=== PATIENT | female | born 1970 | race African-American/Black ===

== ENCOUNTER 2016-09-23 11:36 | Emergency (ER) | payer SELFPAY ==
[~2016-09-23] VITALS: Ht 167.6 cm; Wt 79.5 kg
[~2016-09-23 11:36] MED LIST: NORCO 325 MG-51 TAB PO
[2016-09-23 11:55] VITALS: BP 119/78
[2016-09-23] MEDS ORDERED: CENTRUM1 TA1 (11:58)
[2016-09-23 13:43] LABS: INFLUENZA B NEGATIVE
[2016-09-23] MEDS ORDERED: ZOFRAN ODT4 MG PO (14:04)
[2016-09-23 14:30] VITALS: PULSE 77; TEMP 98.4
== END 2016-09-23 14:28 | disposition home or self-care (01) ==
LOC: COL.ER 11:36
PROVIDERS: Physician Assistant
DX: J11.89 Influenza due to unidentified influenza virus with other manifestations (principal); R11.2 Nausea with vomiting, unspecified

== ENCOUNTER 2017-04-14 18:58 | Emergency (ER) | payer SELFPAY ==
[~2017-04-14] VITALS: Ht 167.6 cm; Wt 79.5 kg
[~2017-04-14 18:58] MED LIST changes: +CENTRUM1 TA1; +ZOFRAN ODT4 MG PO
[2017-04-14 19:43] LABS: BASO % 0.7 % (0.0-2.0); EOS # 0.1 (0.0-0.7); EOS % 1.8 % (0-4.0); LYMPH # 1.7 (1.2-3.4); LYMPH % 31.6 % (20.0-51.0); MEAN CELL VOLUME 82 fl (80.0-100.0); MEAN CORPUSCULAR HGB CONC 31 g/dl (33.0-37.0); MEAN PLATELET VOLUME 10.6 fl (7.4-10.4); MONO # 0.6 (0.1-0.6); MONO % 10.5 % (1.7-9.3); PLATELET COUNT 258 K/mm3 (130-400); RED BLOOD COUNT 4.43 M/mm3 (4.10-5.30); REDCELL DISTRIBUTION WIDTH-CV 16.6 % (11.5-14.5); WHITE BLOOD COUNT 5.5 K/mm3 (4.8-10.8)
[2017-04-14 19:45] LABS: HEMATOCRIT 36.3 % (37.0-47.0); HEMOGLOBIN 11.1 g/dl (12.5-16.0); MEAN CORPUSCULAR HEMOGLOBIN 25 pg (27.0-31.0)
[2017-04-14 19:46] LABS: PH 5 (5-8); URINE APPEARANCE Hazy; URINE BACTERIA Rare /hpf; URINE BILIRUBIN Negative (NEGATIVE); URINE BLOOD Negative (NEGATIVE); URINE COLOR Yellow; URINE GLUCOSE Negative (NEGATIVE); URINE KETONE Negative (NEGATIVE)
[2017-04-14 19:54] LABS: ADJUSTED CALCIUM 8.8 mg/dL (8.4-10.2); ALBUMIN 4.5 gm/dL (3.5-5.0); BILIRUBIN,TOTAL 0.3 mg/dL (0.0-1.0); CALCIUM 9.2 mg/dL (8.4-10.2); CREATININE, serum 0.84 mg/dL (0.52-1.25); POTASSIUM 3.7 mmol/L (3.4-5.0); TOTAL PROTEIN 8.1 gm/dL (6.4-8.2)
[2017-04-14] MEDS ORDERED: FLEXERIL 1010 MG/TAB PO (21:19)
[2017-04-14] MEDS ORDERED: MACROBID 1100 MG/CAP PO (21:19)
[2017-04-14] MEDS ORDERED: NORCO 325 MG-51 TAB PO (21:19)
[2017-04-14 21:20] VITALS: BP 119/71; PULSE 60; TEMP 97
== END 2017-04-14 21:35 | disposition home or self-care (01) ==
LOC: COL.ER 18:58
PROVIDERS: Emergency Medicine
DX: N39.0 Urinary tract infection, site not specified (principal); R10.84 Generalized abdominal pain
CPT/HCPCS: J1170; J1885; J2405; J3010; J7030; Q9967

== ENCOUNTER 2017-12-24 13:43 | Emergency (ER) | payer SELFPAY ==
[~2017-12-24] VITALS: Ht 167.6 cm; Wt 95.5 kg
[~2017-12-24 13:43] MED LIST changes: +FLEXERIL 1010 MG/TAB PO; +MACROBID 1100 MG/CAP PO
[2017-12-24 13:57] VITALS: BP 130/69; PULSE 73; TEMP 98.9
[2017-12-24] MEDS ORDERED: MOBIC15 MG PO (14:20)
[2017-12-24] MEDS ORDERED: ROBAXIN 75750 MG/TAB PO (14:20)
== END 2017-12-24 15:25 | disposition home or self-care (01) ==
LOC: COL.ER 13:43
DX: M54.5 Low back pain (principal); F17.210 Nicotine dependence, cigarettes, uncomplicated; Z88.0 Allergy status to penicillin; Z98.51 Tubal ligation status; Z98.890 Other specified postprocedural states; X50.0XXA Overexertion from strenuous movement or load, initial encounter; Y92.89 Other specified places as the place of occurrence of the external cause; Y99.0 Civilian activity done for income or pay
CPT/HCPCS: J1885; J2360